=== PATIENT | male | born 2000 ===

== ENCOUNTER → 2021-03-10 | Outpatient (REF) | payer OTHER ==
[2021-03-10 13:06] LABS: SEMEN APPEARANCE OPAQUE (OPAQUE); SEMEN VISCOSITY LIQUID (LIQUID); SEMEN VOLUME 4.4 ml (2.0-5.0)
[2021-03-10 13:07] LABS: SPERM CONCENTRATION 36.8 M/ml (>=15.0); WBC CONCENTRATION >1 M/ml (<=1 M/ml)
== END ==
LOC: M LAB REF 12:58 → EDBD 12:58
PROVIDERS: ATTEND Nurse Practitioner
DX: Z31.41 Encounter for fertility testing (principal)